=== PATIENT | female | born 1945 | race Caucasian/White ===

== ENCOUNTER 2017-04-03 11:22 | Emergency (ER) | payer MEDICARE ==
[~2017-04-03] VITALS: Ht 154.9 cm; Wt 76.0 kg
[2017-04-03 11:28] VITALS: BP 162/89; PULSE 98; RESP 16; TEMP 98.5; O2SAT 94
[2017-04-03] MEDS ORDERED: AMLO2.5T PO (11:57)
[2017-04-03] MEDS ORDERED: TIOT12.9 INH (11:57)
[2017-04-03] MEDS ORDERED: ASPI81CH6 CHEW (11:57)
[2017-04-03] MEDS ORDERED: ADVA250A INH ×2 (11:57)
[2017-04-03] MEDS ORDERED: ALBUAER3 INH (11:57)
[2017-04-03] MEDS ORDERED: TRAM50TA PO (11:57)
[2017-04-03] MEDS ORDERED: DICL75TA PO (11:57)
[2017-04-03] MEDS ORDERED: EZET1TAB8 PO (11:57)
[2017-04-03] MEDS ORDERED: LEVO75TA3 PO (12:00)
[2017-04-03] MEDS ORDERED: SODIUM CHLORIDE 0.9% FLUSH 10 ML FLUSH IV FLUSH PRN (12:15)
--- NOTE | 2017-04-03 12:17 | PD ---
HPI Chief Complaint: Musculoskeletal Complaint Time Seen by Provider: 12:01 Travel History International Travel<30 days: No Contact w/Intl Traveler<30days: No Traveled to known affect area: No History of Present Illness HPI Patient comes in complaining of right ankle pain ongoing since the of last month. Patient states that she tripped getting off the plane, but didn't actually fall causing the injury. Patient saw her primary care doctor was initially told it was fractured and placed in a walking splint however was told there was no fractures but to follow-up with orthopedics where she as well told it was not fractured. Patient continued to wear her splint and went on a cruise , but had to end using a wheelchair. Patient states increased swelling as well as continued throbbing pain in the lateral aspect of her right ankle. She noticed some warmth and erythematous with a past couple of days. Denies any fevers. Denies any other known injuries. Patient placed ice as that seemed to help some. Pain is worse with walking. Denies any radiation of the pain. Denies any numbness or tingling. Patient's concern over possible DVT secondary to the increased swelling. PFSH Past Medical History Arthritis: Yes High Cholesterol: Yes COPD: Yes Hypertension: Yes Tetanus Vaccination: < 5 Years Influenza Vaccination: Yes Menopausal: Yes Past Surgical History Appendectomy: Yes Coronary Stent: Yes Hysterectomy: Yes Tonsillectomy: Yes Social History Alcohol Use: Yes (OCC) Tobacco Use: No Allergies-Medications (Allergen,Severity, Reaction): Coded Allergies: bacitracin (Verified Allergy, Unknown, 04/03/17) doxycycline (Verified Allergy, Unknown, 04/03/17) polymyxin B (Verified Allergy, Unknown, 04/03/17) Reported Meds & Prescriptions Reported Meds & Active Scripts Active Walker/Adult/Folding (Device) 1 Mis Mis Ea .ROUTE DIRECTED Reported Levothyroxine (Levothyroxine Sodium) 75 Mcg Tab 75 Mcg PO DAILY Diclofenac Sodium DR (Diclofenac Sodium) 75 Mg Tabdr 75 Mg PO BID PRN Tramadol (Tramadol HCl) 50 Mg Tab 50 Mg PO Q6H PRN Proair Hfa 8.5 GM Inh (Albuterol Sulfate) 90 Mcg/Act Aer 2 Puff INH Q4-6H PRN 108 mcg/actuation Spiriva Respimat Inh (Tiotropium Inh) 2.5 Mcg/Act Aero 2 Puff INH DAILY 2.5 mcg = 1 inhalation Advair Diskus Inh (Fluticasone-Salmeterol Inh) 250-50 Mcg/Blist Aer 1 Puff INH DAILY Rinse mouth after use. Advair Diskus Inh (Fluticasone-Salmeterol Inh) 250-50 Mcg/Blist Aer 1 Puff INH BID Rinse mouth after use. Amlodipine (Amlodipine Besylate) 2.5 Mg Tab 2.5 Mg PO DAILY Ezetimibe 10 Mg Tab 10 Mg PO DAILY Aspirin Low Dose (Aspirin) 81 Mg Chew 81 Mg CHEW DAILY Review of Systems Except as stated in HPI: all other systems reviewed are Neg Physical Exam Narrative GENERAL: Well-developed, overly nourished, in no acute distress, and non-ill appearing. SKIN: Focused skin assessment warm and dry. Mild erythematous slightly febrile over the lateral aspect of the right ankle is tender to palpation. There is no crepitus or streaking. There is soft tissue swelling noted. HEAD: Atraumatic. Normocephalic. EYES: Pupils equal and round. EOMI. No scleral icterus. No injection or drainage. ENT: No nasal bleeding or discharge. Mucous membranes pink and moist. NECK: Trachea midline. Supple. No nuclear rigidity. CARDIOVASCULAR: Dorsal pulses 2+, intact, and equal bilaterally. Capillary refill less than 2 seconds. RESPIRATORY: No accessory muscle use. No respiratory distress. MUSCULOSKELETAL: No obvious deformities. No clubbing. No cyanosis. Full range of motion. Ankle: Neagative anterior draw and Posada test. Negative Bryan's sign. No laxity noted with passive inversion and eversion of BL ankles. Negative squeeze test. Pulses equal BL distal to injury. Capillary refill less than 2 seconds distal to injury and equal BL. Sensation equal BL 1st web space. FROM of toes distal to injury and equal BL. NV intact distal to injury and equal BL. Dorsal pulses equal BL. Patient reports tenderness to palpation over lateral aspect of right ankle. There is no crepitus. No open wounds. NEUROLOGICAL: Awake and alert. No obvious cranial nerve deficits. Motor grossly within normal limits. Normal speech. PSYCHIATRIC: Appropriate mood and affect; insight and judgment normal. Data Data Last Documented VS Vital Signs Date Time Temp Pulse Resp B/P (MAP) Pulse Ox O2 Delivery O2 Flow Rate FiO2 04/03/17 14:55 83 16 134/86 (102) 94 04/03/17 11:28 98.5 Orders Orders Tibia/Fibula (Ap/Lat) (04/03/17 11:55) Basic Metabolic Panel (Bmp) (04/03/17 12:09) Complete Blood Count With Diff (04/03/17 12:09) Prothrombin Time / Inr (Pt) (04/03/17 12:09) Act Partial Throm Time (Ptt) (04/03/17 12:09) Iv Access Insert/Monitor (04/03/17 12:09) Sodium Chloride 0.9% Flush (Ns Flush) (04/03/17 12:15) Us Leg Venous Doppler (04/03/17 12:09) Westergren Sedimentation Rate (04/03/17 12:09) C-Reactive Protein (Crp) (04/03/17 12:09) Uric Acid (04/03/17 12:09) Ice/Cold Pack (04/03/17 12:09) Ed Discharge Order (04/03/17 13:31) Splint Or Brace Apply/Monitor (04/03/17 13:31) Fiberglass Short Leg Splint Ad (04/03/17 ) Fiberglass Sugartong Sp Ad Sl (04/03/17 ) Labs Laboratory Tests Test 04/03/17 12:31 White Blood Count 7.0 TH/MM3 Red Blood Count 4.11 MIL/MM3 Hemoglobin 12.6 GM/DL Hematocrit 37.7 % Mean Corpuscular Volume 91.7 FL Mean Corpuscular Hemoglobin 30.8 PG Mean Corpuscular Hemoglobin Concent 33.6 % Red Cell Distribution Width 13.7 % Platelet Count 248 TH/MM3 Mean Platelet Volume 9.3 FL Neutrophils (%) (Auto) 69.7 % Lymphocytes (%) (Auto) 18.4 % Monocytes (%) (Auto) 6.9 % Eosinophils (%) (Auto) 4.0 % Basophils (%) (Auto) 1.0 % Neutrophils # (Auto) 4.8 TH/MM3 Lymphocytes # (Auto) 1.3 TH/MM3 Monocytes # (Auto) 0.5 TH/MM3 Eosinophils # (Auto) 0.3 TH/MM3 Basophils # (Auto) 0.1 TH/MM3 CBC Comment DIFF FINAL Differential Comment Erythrocyte Sedimentation Rate 25 mm/hr Prothrombin Time 10.1 SEC Prothromb Time International Ratio 1.0 RATIO Activated Partial Thromboplast Time 24.0 SEC Blood Urea Nitrogen 19 MG/DL Creatinine 0.66 MG/DL Random Glucose 109 MG/DL Calcium Level 9.3 MG/DL Uric Acid 4.2 MG/DL Sodium Level 141 MEQ/L Potassium Level 3.9 MEQ/L Chloride Level 106 MEQ/L Carbon Dioxide Level 27.2 MEQ/L Anion Gap 8 MEQ/L Estimat Glomerular Filtration Rate 89 ML/MIN C-Reactive Protein 6.66 MG/DL MDM Medical Decision Making Medical Screen Exam Complete: Yes Emergency Medical Condition: Yes Interpretation(s) Last Impressions Lower Extremity Ultrasound 04/03/17 1209 Signed Impressions: Service Date/Time: March 12:57 - CONCLUSION: Normal examination. Paolo Hyatt MD Tibia/Fibula X-Ray 04/03/17 1155 Signed Impressions: Service Date/Time: March 12:16 - CONCLUSION: Transverse fracture the distal fibular shaft 5.4 cm above the tip of lateral malleolus. Paolo Hyatt MD Differential Diagnosis Fracture, sprain, DVT, osteomyelitis, cellulitis, joint infection, gout, pseudogout Narrative Course The patient sustained a fracture. The distal extremity appears neurovascularly intact, without evidence of neurovascular injury nor compartment syndrome. Tendon exam also was intact. The effected limb was splinted. The patient was discharged with fracture and splint care instructions and given warnings for vascular compromise. The patient is to follow up with Orthopedics. The patient agrees with plan. Patient in no obvious distress upon re-evaluation. All pertinent laboratory/ Radiology result(s) discussed with patient/family. Patient reports that she has pain medication at home and does not need any more at this time. Discussed patient with Dr. Pond prior to discharge, who is in agreement with plan of care and disposition. Any questions/concerns in reference to patient diagnosis/ condition discussed and clarified prior to patient's discharge. Reinforced sheer importance of close follow up with orthopedics. Instructed patient to return to ED immediately, if symptoms return/worsen. Patient showed understanding of above instructions. Further instructions and recommendations were detailed in discharge paperwork. Patient left without difficulty out of ED at discharge and was given a prescription for a walker. Diagnosis Primary Impression: Closed right fibular fracture Qualified Codes: S82.831A - Other fracture of upper and lower end of right fibula, initial encounter for closed fracture Referrals: Ramon Morin MD Patient Instructions: General Instructions, How to Choose and Use a Walker (GEN ), Leg Fracture (ED), Splint Care (ED) Additional Instructions: Follow-up with orthopedics in one to 3 days for reevaluation. Do not apply pressure to right lower extremity until reevaluated by orthopedic. Use walker or a wheelchair for support. Elevate effected limb throughout the day decreased pain and swelling. Apply ice to affected area 20 minutes per hour as needed for pain. Use your pain medication as prescribed as needed for pain. Return to the emergency department if symptoms get worse. Med/Other Pt SpecificInfo: Prescription(s) given Scripts Walker/Adult/Folding (Walker/Adult/Folding) 1 Mis Mis EA .ROUTE DIRECTED, #1 0 Refills Prov: Barrie Colon MD 04/03/17 Disposition: 01 DISCHARGE HOME Condition: Stable Devin Sommer Apr 03, 2017 12:17
[2017-04-03 12:59] LABS: AUTOMATED NEUTROPHIL # 4.8 TH/MM3 (1.8-7.7); BASOPHIL # 0.1 TH/MM3 (0-0.2); EOSINOPHIL # 0.3 TH/MM3 (0-0.4); HEMATOCRIT 37.7 % (35.0-46.0); HEMOGLOBIN 12.6 GM/DL (11.6-15.3); LYMPH % 18.4 % (9.0-44.0); LYMPHOCYTE # 1.3 TH/MM3 (1.0-4.8); MEAN CELL VOLUME 91.7 FL (80.0-100.0); MEAN CORPUSCULAR HEMOGLOBIN 30.8 PG (27.0-34.0); MEAN CORPUSCULAR HGB CONC 33.6 % (32.0-36.0); MEAN PLATELET VOLUME 9.3 FL (7.0-11.0); MONO % 6.9 % (0.0-8.0); MONOCYTE # 0.5 TH/MM3 (0-0.9); NEUT % 69.7 % (16.0-70.0); PLATELET COUNT 248 TH/MM3 (150-450); RED BLOOD COUNT 4.11 MIL/MM3 (4.00-5.30); RED CELL DISTRIBUTION WIDTH 13.7 % (11.6-17.2)
--- NOTE | 2017-04-03 12:59 | RADRPT ---
EXAM DATE/TIME: 04/03/2017 12:16 [facility] COMPARISON: No previous studies available for comparison. INDICATIONS : Patient tripped 3 weeks ago. Complains of distal tib/fib pain. MEDICAL HISTORY : None. SURGICAL HISTORY : None. ENCOUNTER: Initial ACUITY: 3 weeks PAIN SCORE: 5/10 LOCATION: Right tibia/fibula FINDINGS: Two view examination of the right tibia demonstrates no evidence of dislocation. Transverse fracture thru the distal fibular shaft. Bony mineralization is normal. The soft tissue structures are intac t. CONCLUSION: Transverse fracture the distal fibular shaft 5.4 cm above the tip of lateral malleolus. Paolo Hyatt MD on April 03, 2017 at 12:56 Board Certified Radiologist. This report was verified electronically.
[2017-04-03 13:01] LABS: BICARBONATE 27.2 MEQ/L (21.0-32.0); CALCIUM 9.3 MG/DL (8.5-10.1)
[2017-04-03 13:03] LABS: PROTHROMBIN TIME - PATIENT 10.1 SEC (9.8-11.6)
[2017-04-03 13:05] LABS: CREATININE 0.66 MG/DL (0.50-1.00)
--- NOTE | 2017-04-03 13:18 | RADRPT ---
EXAM DATE/TIME: 04/03/2017 12:57 [facility] COMPARISON: No previous studies available for comparison. INDICATIONS : Right leg pain and swelling. MEDICAL HISTORY : Hypertension. Chronic obstructive pulmonary disease. SURGICAL HISTORY : Tonsillectomy. Appendectomy. Hysterectomy. ENCOUNTER: Initial ACUITY: 3 weeks PAIN SCORE: 2/10 LOCATION: Right leg. TECHNIQUE: Venous ultrasound of the leg was performed from the inguinal ligament to the proximal calf. Real-meli e, color Doppler and spectral tracing, compression and augmentation techniques were used. FINDINGS: There is normal compressibility of the deep venous system from the inguinal region to the proximal ca lf. No echogenic clot is seen in the lumen of the common femoral, femoral, popliteal, and posterior tibial veins. There is a normal response of the venous system to proximal and distal augmentation an d respiration. CONCLUSION: Normal examination. Paolo Hyatt MD on April 03, 2017 at 13:16 Board Certified Radiologist. This report was verified electronically.
[2017-04-03] MEDS ORDERED: WALKER/ADULT/FO1 MIS (13:32)
[2017-04-03 14:45] LABS: C-REACTIVE PROTEIN 6.66 MG/DL (0.00-0.30)
[2017-04-03 14:55] VITALS: BP 134/86
== END 2017-04-03 14:57 | disposition home or self-care (01) ==
LOC: PHEFT 11:22 → PHED 14:57
DX: S82.831A Other fracture of upper and lower end of right fibula, initial encounter for closed fracture (principal); M79.89 Other specified soft tissue disorders; I10 Essential (primary) hypertension; J44.9 Chronic obstructive pulmonary disease, unspecified; W18.40XA Slipping, tripping and stumbling without falling, unspecified, initial encounter; Y93.89 Activity, other specified; Y92.813 Airplane as the place of occurrence of the external cause; Z79.899 Other long term (current) drug therapy
CPT/HCPCS: 29515; 73590; 80048; 84550; 85025; 85610; 85652; 85730; 86140; 93971